=== PATIENT | female | born 1940 | race Caucasian/White ===

== ENCOUNTER → 2019-02-22 | Outpatient (CLI) | payer MEDICARE ==
[~2019-02-22] MED LIST: ASPIRIN325 M2; BIOTIN1 MG PO; CALCIUM CITRAT1 EA10 PO; FISH OIL300 MG PO; FOLIC ACID1 MG PO; IRON18 MG PO; Z GLUCOTROL; Z TIROSINT; Z.0.ACIPHEX20 MG; Z.0.AMBIEN10 MG; Z.0.EVISTA60 MG; Z.0.GLUCOPHAGE850 MG; Z.0.LANTUS100 UNIT/1; Z.0.LEXAPRO10 MG; Z.0.ZOCOR20 MG
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
== END ==
LOC: MRI 14:06
PROVIDERS: ATTEND Internal Medicine
DX: M54.16 Radiculopathy, lumbar region (principal)
CPT/HCPCS: 72148